=== PATIENT | male | born 1960 | race Caucasian/White ===

== ENCOUNTER → 2016-04-14 | Day surgery (SDC) | payer OTHER ==
[~2016-04-14] MED LIST: Acetaminophen TAB* 325 MG PO PRN; Buffered Lidocaine 1% SYR 3ML* 3 ML/SYR SYRINGE INTRADERM ONE; Buffered Lidocaine 1% SYR 3ML* 3 ML/SYR SYRINGE ONE; Cyclopentolate 1% OPTH.SOL* 2 ML BTL ONE; Flurbiprofen 0.03% OPTH.SOL* 2.5 ML BTL ONE; Lidocaine 1% MPF* 2 ML VIAL ONE; Lidocaine 2% EPI 1:200000 MPF* 20 ML VIAL ONE; Midazolam* 1 MG/ML 5 ML VIAL (5 MG) ONE; Neomycin/Polymy/Dex OPTH.SUSP* MAXITROL 0.1% 5 ML ONE; Phenylephrine 2.5% OPTH.SOL* 2 ML BTL ONE; Povidone Iodine 5% OPTH* 30 ML BTL ONE; Proparacaine 0.5% OPHTH.SOL* 15 ML BTL ONE; Trypan Blue 0.06% SOL* 0.5 ML BTL ONE; acetaZOLAMIDE TAB* 250 MG ONE; fentaNYL* 50 MCG/ML 2 ML VIAL (100 MCG VIAL) ONE
[2016-04-14 10:58] VITALS: BP 107/70
--- NOTE | 2016-04-14 14:18 | OP ---
DATE OF OPERATION: 04/14/2016 - [facility] DATE OF : 1960. SURGEON: Sergei Marin M.D. PREOPERATIVE DIAGNOSIS: Cataract left eye. POSTOPERATIVE DIAGNOSIS: Cataract left eye. OPERATIVE PROCEDURE: Phacoemulsification left eye with IOL. DESCRIPTION OF PROCEDURE: The patient was brought to the operating room after being given 1/2% Alcaine with epinephrine drops in the preoperative area. The eye was prepped and draped in the usual sterile fashion. Sterile drape and eyelid speculum were placed. Again, topical 1/2% Alcaine with epinephrine was given. A paracentesis incision was made at the 3 o'clock position with the No.75 blade. Clear cornea incision 2.2 x 2.2-mm was created at the 6 o'clock position starting at the anterior limbus using the 2.2-mm keratome. The anterior chamber was irrigated with 0.4 mL of 1% non-preservative intracameral lidocaine and filled with DisCoVisc. A capsulorrhexis was completed using the cystotome and the Utrata forceps. Hydrodissection was performed with balanced salt solution. The lens nucleus was removed with the Phacoemulsification handpiece without incident. Cortex was removed with the irrigation-aspiration handpiece. The capsular bag was re-inflated using DisCoVisc and an [id number] implant was inserted with the shooter. Prior to capsulorrhexis, VisionBlue was used to dye the anterior capsule after injection of air. The irrigation- aspiration handpiece was used to remove all residual DisCoVisc. The eye was refilled with balanced salt solution and the wound checked and found to be watertight. Topical Maxitrol drops were given. Indication for complex cataract surgery: White cataract requiring capsular stain for capsulorrhexis. [id number]/[facility] #: [id number] SHIRA
== END | disposition home or self-care (01) ==
LOC: OREAST 07:43
PROVIDERS: ATTEND Specialist
DX: H25.812 Combined forms of age-related cataract, left eye (principal); I48.91 Unspecified atrial fibrillation; I50.9 Heart failure, unspecified; I42.8 Other cardiomyopathies; F17.210 Nicotine dependence, cigarettes, uncomplicated
CPT/HCPCS: A9270-GY; J2250; J3010; V2632

== ENCOUNTER → 2016-04-21 | Day surgery (SDC) | payer OTHER ==
[~2016-04-21] MED LIST changes: -fentaNYL* 50 MCG/ML 2 ML VIAL (100 MCG VIAL) ONE
[2016-04-21 09:54] VITALS: BP 113/91
--- NOTE | 2016-04-21 13:24 | OP ---
OPERATIVE NOTE: DATE OF OPERATION: 04/21/16 DATE OF : [birth year] SURGEON: Sergei Marin M.D. PREOPERATIVE DIAGNOSIS: Cataract right eye. POSTOPERATIVE DIAGNOSIS: Cataract right eye. OPERATIVE PROCEDURE: Phacoemulsification right eye with IOL. PROCEDURE: The patient was brought to the operating room after being given 1/2% Alcaine with epinep hrine drops in the preoperative area. The eye was prepped and draped in the usual sterile fashion. Sterile drape and eyelid speculum were placed. Again, topical 1/2% Alcaine with epinephrine was gi ambar. A paracentesis incision was made at the 9 o'clock position with the No.75 blade. Clear cornea incision 2.2 x 2.2-mm was created at the 12 o'clock position starting at the anterior limbus using the 2.2-mm keratome. The anterior chamber was irrigated with 0.4 mL of 1% non-preservative intracam eral lidocaine and filled with DisCoVisc. A capsulorrhexis was completed using the cystotome and shaheen e Utrata forceps. Hydrodissection was performed with balanced salt solution. The lens nucleus was r emoved with the Phacoemulsification handpiece without incident. Cortex was removed with the irrigat ion-aspiration handpiece. The capsular bag was re-inflated using DisCoVisc and an [id number] implant was inserted with the shooter. Prior to capsulorrhexis, VisionBlue was used to stain the anterior capsule. The irrigation- aspiration handpiece was used to remove all residual DisCoVisc. The eye w as refilled with balanced salt solution and the wound checked and found to be watertight. Topical M axitrol drops were given. Indication for complex cataract surgery: White cataract requiring capsular dye. [id number]/[facility] #: [id number]
== END | disposition home or self-care (01) ==
LOC: OREAST 07:19
PROVIDERS: ATTEND Specialist
DX: H25.811 Combined forms of age-related cataract, right eye (principal); F17.210 Nicotine dependence, cigarettes, uncomplicated; I50.22 Chronic systolic (congestive) heart failure; I48.2 Chronic atrial fibrillation; Z79.01 Long term (current) use of anticoagulants
CPT/HCPCS: A9270-GY; J2250; V2632

== ENCOUNTER 2017-01-20 15:56 | Inpatient (IN) | payer SELFPAY ==
[2017-01-20] MEDS ORDERED: NS 0.9% 1000 ML* 1,000 ML IV ONE (16:28)
[2017-01-20] MEDS ORDERED: Diltiazem DRIP* 100 MG/100 ML ADDV.BAG IVPB ONE (16:48)
[2017-01-20] MEDS ORDERED: Diltiazem IV* 5 MG/ML 5 ML VIAL (for loading dose/IV Push) (25 MG) IV SLOW PU ONE (16:48)
--- NOTE | 2017-01-20 17:10 | RAD ---
INDICATION: Syncope COMPARISON: Chest x-ray dated October 27, 2014 TECHNIQUE: Single AP portable view of the chest was obtained. FINDINGS: Image quality is compromised due to the relative inferiority of a portable chest x-ray. The heart and mediastinum exhibit normal size and contour. The lungs are grossly clear. Linear density identified in the prior chest x-ray has resolved. There is no evidence of a large pleural effusion. Visualized bones are normal for the patient's age. IMPRESSION: No radiographic evidence for acute cardiopulmonary abnormality on this portable chest x-ray.
--- NOTE | 2017-01-20 17:34 | RAD ---
Indication: Syncope with head injury. CT of the brain was performed without IV contrast. Ventricular structures are midline. No midline shift is noted. The extra-axial spaces are unremarkable. There is no evidence of intracranial mass or hemorrhage. No other high or low density lesions are identified. Mastoid air cells and paranasal sinuses are unremarkable. IMPRESSION: No intracranial mass or hemorrhage is noted.
[2017-01-20 17:41] LABS: Hematocrit 42 % (42-52); Hemoglobin 14.6 g/dl (14.0-18.0); Mean Corpuscular HGB Conc 35 g/dl (31-36); Mean Corpuscular Hemoglobin 33 pg (27-31); Mean Corpuscular Volume 96 fL (80-94); Mean Platelet Volume 7 um3 (7.4-10.4); Red Blood Count 4.37 10^6/ul (4.0-5.4); Red Cell Distribution Width 15 % (10.5-15); White Blood Count 8.5 10^3/ul (3.5-10.8)
[2017-01-20 17:58] LABS: Albumin 3.7 g/dL (3.2-5.2); BUN/Creatinine Ratio 8.3 (8-20); EGFR African American 122.5 (>60); EGFR Non-African American 95.2 (>60); Magnesium 1.8 mg/dL (1.9-2.7); Potassium 4.9 mmol/L (3.5-5.0); Total Bilirubin 0.5 mg/dL (0.2-1.0); Total Protein 6.7 g/dL (6.4-8.9)
[2017-01-20 17:59] LABS: Troponin I 0.02 ng/mL (<0.04)
--- NOTE | 2017-01-20 18:11 | ED ---
Margaret Santizo Nilda, scribed for Carrie Brothers MD on 01/20/17 at 1725 . Syncope/Near Syncope - HPI Summary HPI Summary: This patient is a 56 year old M presenting to [facility] with a chief complaint of syncope s/p lifting heavy ply wood at work at approximately 1600 today. Patient reports lightheadedness, LOC, and head trauma (bruise) as a result of the fall, but denies palpitations. He rates the pain 2/10 in severity. Symptoms aggravated by nothing and alleviated by spontaneous resolution. Similar episode of syncope last year. PMHx includes A-Fib (uncontrolled). SHx ETOH (8 beers per day). - History Of Current Complaint Chief Complaint: EDSyncope Time Seen by Provider: 01/20/17 16:25 Hx Obtained From: Patient Onset/Duration: Sudden Onset Timing: Minutes Context: Loss Of Consciousness Activity At Onset: Exertion Associated Head Trauma: Yes Aggravating Factor(s): Nothing Alleviating Factor(s): Spontaneous Resolution Associated Signs And Symptoms: Other - reports lightheadedness, LOC, and head trauma (bruise) as a result of the fall. Patient denies palpitations. - Allergies/Home Medications Allergies/Adverse Reactions: Allergies Allergy/AdvReac Type Severity Reaction Status Date / Time No Known Allergies Allergy Verified 04/21/16 07:55 PMH/Surg Hx/FS Hx/Imm Hx Endocrine/Hematology History: Denies: Hx Anticoagulant Therapy, Hx Blood Disorders, Hx Blood Transfusions, Hx Bone Marrow Disease, Hx Diabetes, Hx Systemic Lupus Erythematosus, Hx Sickle Cell Disease, Hx Thyroid Disease, Hx Anemia, Hx Unexplained Bleeding, Other Endocrine/Hematological Disorders Cardiovascular History: Reports: Hx Congestive Heart Failure - 2011, Other Cardiovascular Problems/Disorders - A-FIB Denies: Hx Aneurysm, Hx Angina, Hx Angioplasty, Hx Auto Implanted Cardiovert Defib, Hx Cardiac Arrest, Hx Cardiomegaly, Hx Congenital Heart Disease, Hx Coronary Artery Disease, Hx Deep Vein Thrombosis, Hx Embolism, Hx Hypercholesterolemia, Hx Hypotension, Hx Hypertension, Hx Pacemaker/ICD, Hx Peripheral Vascular Disease, Hx Rheumatic Fever, Hx Syncope, Hx Valvular Heart Disease Respiratory History: Denies: Hx Asthma, Hx Chronic Bronchitis, Hx Chronic Obstructive Pulmonary Disease (COPD), Hx Cystic Fibrosis, Hx Lung Cancer, Hx Pleural Effusion, Hx Pneumonia, Hx Pulmonary Edema, Hx Pulmonary Embolism, Hx Seasonal Allergies, Hx Sleep Apnea, Other Respiratory Problems/Disorders GI History: Denies: Hx Cirrhosis, Hx Crohn's Disease, Hx Diverticulosis, Hx Gall Bladder Disease, Hx Gastroesophageal Reflux Disease, Hx Gastrointestinal Bleed, Hx Hiatal Hernia, Hx Irritable Bowel, Hx Jaundice, Hx Obstructive Bowel, Hx Ileostomy, Hx Pyloric Stenosis, Hx Ulcer, Other GI Disorders History: Denies: Hx Acute Renal Failure, Hx Benign Prostatic Hyperplasia, Hx Chronic Renal Failure, Hx Dialysis, Hx Kidney Infection, Hx Kidney Stones, Other Problems/Disorders Musculoskeletal History: Denies: Hx Arthritis, Hx Back Problems, Hx Bursitis, Hx Congenital Bone Abnormalities, Hx Fibromyalgia, Hx Gout, Hx Orthopedic Injury, Hx Osteoporosis, Hx Scoliosis, Hx Tendonitis, Other Musculoskeletal History Sensory History: Reports: Hx Cataracts - PENDING SURGERY Denies: Hx Contacts or Glasses, Hx Eye Injury, Hx Eye Prosthesis, Hx Glaucoma , Hx Legally Blind, Hx Macular Degeneration, Hx Vision Problem, Other Sensory Impairments Opthamlomology History: Reports: Hx Cataracts - PENDING SURGERY Denies: Hx Contacts or Glasses, Hx Eye Injury, Hx Eye Prosthesis, Hx Glaucoma , Hx Legally Blind, Hx Macular Degeneration, Hx Vision Problem, Other Sensory Impairments Neurological History: Denies: Hx Dementia, Hx Developmental Delay, Hx Headaches, Hx Migraine, Hx Nerve Disease, Hx Seizures, Hx Spinal Cord Injury, Hx Transient Ischemic Attacks (TIA), Other Neuro Impairments/Disorders Psychiatric History: Reports: Hx Anxiety - Surgical History Surgery Procedure, Year, and Place: TONSILLECTOMY A CHILD Hx Anesthesia Reactions: No Infectious Disease History: Denies: Hx Clostridium Difficile, Hx Hepatitis, Hx Human Immunodeficiency Virus (HIV), Hx of Known/Suspected MRSA, Hx Shingles, Hx Tuberculosis, Hx Known/ Suspected VRE, Hx Known/Suspected VRSA, History Other Infectious Disease - Family History Known Family History: Negative: Hypertension, Diabetes - Social History Occupation: Employed Full-time Lives: Alone - homeless (1 month) Alcohol Use: Occasionally Alcohol Amount: 6 beers a day Substance Use Type: Reports: None Substance Use Comment - Amount & Last Used: Last drank on gi 8 beers and 8 shots Hx Tobacco Use: Yes Smoking Status (MU): Former Smoker Type: Cigarettes Length of Time of Smoking/Using Tobacco: 20 yrs Have You Smoked in the Last Year: Yes Review of Systems Negative: Palpitations Neurological: Other - lightheadedness, LOC, fall, head trauma (bruise) Positive: Syncope All Other Systems Reviewed And Are Negative: Yes Physical Exam Triage Information Reviewed: Yes Vital Signs On Initial Exam: Initial Vitals BP 145/80 01/20/17 16:22 Vital Signs Reviewed: Yes Appearance: Positive: Well-Appearing, No Pain Distress Skin: Positive: Warm, Skin Color Reflects Adequate Perfusion, Dry Eyes: Positive: EOMI, IVANA ENT: Positive: Pharynx normal, TMs normal Neck: Positive: Supple, Nontender Respiratory/Lung Sounds: Positive: Clear to Auscultation, Breath Sounds Present. Negative: Rales, Rhonchi, Wheezes Cardiovascular: Positive: Other - irregularly irregular heartbeat; no gallop. Negative: Murmur, Rub Abdomen Description: Positive: Nontender, Soft, Other: - no rebound. Negative: Distended, Guarding Bowel Sounds: Positive: Present Musculoskeletal: Positive: Strength/ROM Intact. Negative: Edema Left, Edema Right Neurological: Positive: Sensory/Motor Intact, Alert, Oriented to Person Place, Time, CN Intact II-III Psychiatric: Positive: Affect/Mood Appropriate - [place] Coma Scale Coma Scale Total: 15 Diagnostics - Vital Signs Vital Signs Temp Pulse Resp BP Pulse Ox 01/20/17 16:24 97.7 F 135 20 145/80 99 01/20/17 16:22 145/80 - Laboratory Lab Results: Lab Results 01/20/17 01/20/17 01/20/17 Range/Units 17:28 17:28 17:28 WBC 8.5 (3.5-10.8) 10^3/ul RBC 4.37 (4.0-5.4) 10^6/ul Hgb 14.6 (14.0-18.0) g/dl Hct 42 (42-52) % MCV 96 H (80-94) fL MCH 33 H (27-31) pg MCHC 35 (31-36) g/dl RDW 15 (10.5-15) % Plt Count 226 (150-450) 10^3/ul MPV 7 L (7.4-10.4) um3 Neut % (Auto) 67.1 (38-83) % Lymph % (Auto) 15.9 L (25-47) % [place] % (Auto) 14.9 H (1-9) % Eos % (Auto) 1.3 (0-6) % Baso % (Auto) 0.8 (0-2) % Absolute Neuts (auto) 5.7 (1.5-7.7) 10^3/ul Absolute Lymphs (auto) 1.3 (1.0-4.8) 10^3/ul Absolute Monos (auto) 1.3 H (0-0.8) 10^3/ul Absolute Eos (auto) 0.1 (0-0.6) 10^3/ul Absolute Basos (auto) 0.1 (0-0.2) 10^3/ul Absolute Nucleated RBC 0.01 10^3/ul Nucleated RBC % 0.1 Sodium 133 (133-145) mmol/L Potassium 4.9 (3.5-5.0) mmol/L Chloride 98 L (101-111) mmol/L Carbon Dioxide 29 (22-32) mmol/L Anion Gap 6 (2-11) mmol/L BUN 7 (6-24) mg/dL Creatinine 0.84 (0.67-1.17) mg/dL Est GFR ( Amer) 122.5 (>60) Est GFR (Non-Af Amer) 95.2 (>60) BUN/Creatinine Ratio 8.3 (8-20) Glucose 114 H (70-100) mg/dL Lactic Acid 1.2 (0.5-2.0) mmol/L Calcium 9.0 (8.6-10.3) mg/dL Magnesium 1.8 L (1.9-2.7) mg/dL Total Bilirubin 0.50 (0.2-1.0) mg/dL AST 66 H (13-39) U/L ALT 41 (7-52) U/L Alkaline Phosphatase 97 (34-104) U/L Troponin I 0.02 (<0.04) ng/mL Total Protein 6.7 (6.4-8.9) g/dL Albumin 3.7 (3.2-5.2) g/dL Globulin 3.0 (2-4) g/dL Albumin/Globulin Ratio 1.2 (1-3) TSH Pending Result Diagrams: 01/20/17 17:28 01/20/17 17:28 Lab Statement: Any lab studies that have been ordered have been reviewed, and results considered in the medical decision making process. - Radiology CXR Radiology Interpretation Completed By: Radiologist - No radiographic evidence for acute cardiopulmonary abnormality on this protable CXR. ED Physician has reviewed this report and agrees. - CT Brain CT Interpretation Completed By: Radiologist - No intracranial mass or hemorrhage is noted. ED physcian has reviewed this report and agrees. - EKG 1636 Cardiac Rate: Tachycardia - 142 bpm EKG Rhythm: Atrial Fibrillation ST Segment: Normal EKG Interpretation: No Q Course/Dx Course Of Treatment: 56 yo male who is homeless works at the [employer] with hx of afib no meds as he lost his insurance. He had a syncopal episode today with rapid afib, ct brain neg, dilt iv started case discussed with Dr. Fields for admission - Diagnoses Provider Diagnoses: Syncope, Atrial fibrillation, Head injury - Physician Notifications Discussed Care of Patient With: Yolis Fields - Hospitalist Time Discussed With Above Provider: 17:10 Instructed by Provider To: Admit As Inpatient Discharge - Discharge Plan Condition: Stable Disposition: ADMITTED TO [facility] Referrals: No Primary Care PhysNOPCP [Primary Care Provider] - The documentation as recorded by the Margaret barclay Nilda accurately reflects the service I personally performed and the decisions made by me, Carrie Brothers MD.
[2017-01-20] MEDS ORDERED: Acetaminophen TAB* 325 MG PO PRN (18:29)
[2017-01-20] MEDS ORDERED: Ondansetron INJ* 2 MG/ML VIAL IV PRN (18:29)
[2017-01-20] MEDS ORDERED: Magnesium Sulfate 2 GM IV* 2 GM/50 ML BAG IVPB ONE (18:33)
[2017-01-20 18:34] LABS: TSH (Thyroid Stimulating Horm) 1.55 mcIU/mL (0.34-5.60)
[2017-01-20] MEDS ORDERED: LORazepam TAB(*) 1 MG PO SCH (19:00)
[2017-01-20] MEDS ORDERED: Thiamine IV* 100 MG, Folic Acid IV* 1 MG, Multiple Vitamin IV ADULT* 10 ML in NS 0.9% 1... IV ONE (19:00)
[2017-01-20] MEDS ORDERED: Metoprolol Tartrate TAB* 25 MG PO SCH (19:00)
[2017-01-20] MEDS ORDERED: Enoxaparin(*) 40 MG/0.4 ML SYR SUBCUT SCH (19:00)
[2017-01-20 19:47] LABS: Folate 15.4 ng/mL (>3.99)
[2017-01-20 20:03] LABS: Urine Bilirubin Negative (Negative); Urine Glucose Negative (Negative); Urine Nitrite Negative (Negative)
[2017-01-20 20:18] LABS: Benzodiazepine Urine Screen None Detected (None Detect)
[2017-01-20] MEDS: Metoprolol Tartrate TAB* 25 MG PO SCH (20:34)
[2017-01-20] MEDS: Enoxaparin(*) 100 MG/ML SYR SUBCUT SCH (20:34)
--- NOTE | 2017-01-21 02:07 | HP ---
CC: Dr. Ruiz* MEDICINE HISTORY AND PHYSICAL: DATE OF ADMISSION: 01/20/17 PROVIDER: Jed Phelps NP ATTENDING PHYSICIAN: Dr. José Pathak* (as dictated by Jed Phelps NP). PRIMARY CARE PROVIDER: Dr. Ruiz. CHIEF COMPLAINT: Syncopal episode. HISTORY OF PRESENT ILLNESS: This is a 56-year-old male patient who was brought into the ER for further evaluation after a syncopal episode at work. The patient states that he was at work at the [employer] and he was lifting heavy plywood by himself. He finished and started to walk away and started to feel lightheaded. He tried to sit down in a nearby chair and the next thing he knew he woke up on the ground. The patient was seen by coworkers and was brought into the ER for further evaluation. He states that he had a previous episode approximately 1 year ago when he was out walking in [place]. He had a syncopal episode, was brought into the ER by ambulance, but then states he was subsequently discharged. The patient denies any recent illness, fever, cold or flu-like symptoms. He denies having chest pain, palpitations, issues with dizziness and weakness, shortness of breath. He denies any decreased activity tolerance, abdominal pain , nausea, vomiting, diarrhea, or dysuria. Denies focal weakness, sensory loss, or difficulty with speech. Here in the ER during his evaluation, the patient was noted to be in atrial fibrillation with RVR. The patient states he was not surprised by this as he had stopped taking his home medications approximately 6 months ago secondary to cost. He states that he has had AFib since 2009. He has not been seen by Cardiology since that time. He has also been off of his blood thinner stating that when he was last here in the hospital he was discharged on one of the newer agents, but his insurance will not cover it. He had refused to be on warfarin stating that he had previously tried this medication, but could not be regulated. He also endorses a history of ankle swelling that started a few weeks ago as well as increased fatigue, but denies any other symptoms such as weight gain, orthopnea, again chest pain, shortness of breath, lightheadedness, or dizziness. PAST MEDICAL HISTORY: Includes: 1. Systolic congestive heart failure. 2. Atrial fibrillation. 3. Coronary artery disease. 4. Nonsustained ventricular tachycardia. 5. Alcoholism. 6. Mixed ischemic and nonischemic cardiomyopathy. PAST SURGICAL HISTORY: Includes tonsillectomy. HOME MEDICATIONS: The patient is currently not taking any medications; however , from previous hospital records it appears the patient was previously on: 1. Aspirin 81 mg daily. 2. Metoprolol tartrate 25 mg t.i.d. 3. Lisinopril 5 mg daily. 4. Lipitor 20 mg daily. 5. Eliquis 5 mg twice daily. 6. Magnesium oxide 400 mg twice daily. 7. Spironolactone 25 mg daily. 8. Thiamine 100 mg daily. ALLERGIES: No known allergies. FAMILY HISTORY: He reports mother with a history of CVA and Crohn's disease and Parkinson's. She in her 80s. His father had a history of colon cancer. SOCIAL HISTORY: The patient endorses a history of tobacco use. He states that he quit 3 years ago. He does admit to daily alcohol use, stating he drinks approximately 4 to 5 beers a day and usually has some shots over the weekend when he is watching football with friends. His last drink was last evening prior to admission. He currently works at the [employer]. He is currently homeless and is staying with his friend. Samanta Irwin is his named emergency contact and surrogate decision maker in the event of emergency. REVIEW OF SYSTEMS: As per HPI. PHYSICAL EXAMINATION GENERAL: This is a well-developed, middle-aged male, who was sitting up in the ED stretcher, in no acute distress. VITAL SIGNS: Temperature 97.7, heart rate 88, respiratory rate 18, blood pressure 109/76, and O2 saturation 96% on room air. HEENT: Pupils are equal, round, and reactive to light. Extraocular movements are intact. Oral mucosa appears moist. The patient has poor dentition. NECK: Supple. No JVD noted. LUNGS: Clear to auscultation. There is no accessory muscle use. CARDIAC: Irregularly irregular heartbeat. No murmurs, rubs, or gallops noted. The patient has trace peripheral edema to the lower extremities. Distal pulses are 1+ and intact. ABDOMEN: Soft, nontender, and nondistended. Bowel sounds are normoactive. MUSCULOSKELETAL: The patient has full range of motion. There is no clubbing or cyanosis. SKIN: Limited assessment, but is warm, dry, and perfused. NEUROLOGIC: Cranial nerves II through XII are grossly intact. The patient moves all extremities. No focal deficits noted. Sensation is intact to light touch in the lower extremities. Psych: He is alert and oriented x3. Affect is appropriate. DIAGNOSTIC STUDIES/LAB DATA: CBC: WBC 8.5, hemoglobin 14.6, hematocrit 42, platelet count 226. CMP: Sodium 133, potassium 4.9, chloride 98, carbon dioxide 29, BUN 7, creatinine 0.84, glucose 114, lactic acid 1.2, calcium 9.0, magnesium 1.8. Total bilirubin 0.5, AST 66, ALT 41, alk phos 97, troponin 0.02 , albumin 3.7, vitamin B12 323, folate 15, TSH 1.55. ASSESSMENT AND PLAN: This is a 56-year-old male, who presents today with atrial fibrillation with rapid ventricular response and a syncopal episode after lifting heavy objects at work. 1. Syncopal episode. It is unclear if this is secondary to the heavy lifting or the patient's atrial fibrillation. I suspect this is a combination of multiple factors. The patient has known cardiomyopathy and has been not adherent with his medication regimen. We will monitor him on telemetry and obtain an echocardiogram. The patient did have a CT of the brain done in the ER , which was negative for any acute pathology. The patient will receive a liter of fluid this evening. We will continue to monitor for any further syncope or dizziness or lightheadedness. 2. Atrial fibrillation with rapid ventricular response. The patient's atrial fibrillation is not new. This is likely secondary to medication nonadherence. The patient has been on diltiazem drip in the ER with good control of his rate. His blood pressure is mildly hypotensive, so it is my plan to discontinue diltiazem drip and start the patient back on metoprolol which he was on as an outpatient. Again, we will attempt to achieve rate control with the metoprolol. The patient has a CHADS2 VASc score of 2. We discussed restarting his Eliquis ; however, given that this is a NOAC and there is risk for hypocoagulability if the patient discontinues it abruptly following discharge. Therefore, I would like to maintain the patient currently on subcu Lovenox b.i.d. for full anticoagulation until we can determine if the patient will be discharged on anticoagulation and what kind of anticoagulation. The patient had previous difficulty with Eliquis and I am not sure if the Xarelto would be a better option for his insurance, so we have requested social work assistance determining what medication the patient could be able to afford and obtain in the outpatient setting. He is adamant that he does not want to go back on Warfarin. 2. Macrocytic anemia. This is likely secondary to the patient's history of alcohol use. We will continue with vitamin supplementation. We will monitor B12 and folate levels. 3. Hypomagnesemia, likely secondary to alcohol use. We will replete with IV magnesium and then restart the patient back on p.o. magnesium. 4. History of systolic heart failure. The patient appears roughly euvolemic, though he does have some mild pedal edema. He is not sure of his baseline weight. We will monitor him on daily weights here and keep track of his I's and O's. Again, we will check an echocardiogram to assess heart function. 5. History of alcohol abuse. The patient will receive 1 banana bag this evening. Initially WAM protocol has been ordered with p.r.n. lorazepam in the event the patient has withdrawal symptoms. Social work has been consulted. 6. History of coronary artery disease. Continue aspirin and resume statin. 7. FEN: The patient has ordered a heart-healthy diet. 8. DVT prophylaxis. He is receiving subcu Lovenox. 9. Code status. The patient is a full code. TIME SPENT: Time spent on this admission was approximately 60 minutes, more than half the time was spent [id number] with the patient obtaining history and physical, performing physical examination, and reviewing the plan of care. Plan of care was also reviewed with my attending, Dr. Pathak, who is in agreement. JED PHELPS, SONU [id number]/[facility] #: [id number] SHIRA
[2017-01-21] MEDS: Metoprolol Tartrate TAB* 25 MG PO SCH ×2 (02:12→13:11)
--- NOTE | 2017-01-21 03:49 | PN ---
Progress Note - Progress Note Date of Service: 01/21/17 Note: Pt was having 2-3.5 second pauses while in afib. Will decrease metoprolol to 25mg BID from QID. Monitor for pauses.
[2017-01-21 06:02] LABS: Hematocrit 38 % (42-52); Hemoglobin 12.6 g/dl (14.0-18.0); Mean Corpuscular HGB Conc 34 g/dl (31-36); Mean Corpuscular Hemoglobin 33 pg (27-31); Mean Corpuscular Volume 97 fL (80-94); Mean Platelet Volume 8 um3 (7.4-10.4); Red Blood Count 3.87 10^6/ul (4.0-5.4); Red Cell Distribution Width 15 % (10.5-15); White Blood Count 8.1 10^3/ul (3.5-10.8)
[2017-01-21 06:16] LABS: BUN/Creatinine Ratio 10.2 (8-20); Calcium 8.5 mg/dL (8.6-10.3); EGFR African American 116.1 (>60); EGFR Non-African American 90.2 (>60); HDL Cholesterol 35.8 mg/dL; Potassium 4.2 mmol/L (3.5-5.0)
[2017-01-21] MEDS: Multivitamins/Minerals TAB PO SCH (08:17)
[2017-01-21] MEDS: Lisinopril TAB* 5 MG PO SCH (08:17)
[2017-01-21] MEDS: Magnesium Oxide TAB* 400 MG PO SCH (08:17)
[2017-01-21] MEDS: Thiamine TAB* 100 MG TAB PO SCH (08:18)
[2017-01-21] MEDS: Enoxaparin(*) 100 MG/ML SYR SUBCUT SCH ×2 (08:18→20:30)
[2017-01-21] MEDS: Aspirin Low Dose CHEW TAB* 81 MG PO SCH (08:18)
[2017-01-21] MEDS: Folic Acid TAB* 1 MG PO SCH (08:18)
[2017-01-21] MEDS ORDERED: Atorvastatin* 40 MG TAB PO SCH (17:00)
--- NOTE | 2017-01-21 18:05 | ECHO ---
Patient: GABRIELE JIMÉNEZ [facility] Rec#: [id number] : 1960 Date: 01/21/2017 Age: 56y Height: 180.3 cm / 71.0 in Weight: 90.7 kg / 199.9 lbs Sex: M BSA: 2.1 Room#: 438 Admit Date#: 01/20/2017 Type: Inpatient Referring: Louise Champagne Reading: José Miguel Billy MD Category Planner: Prachi Roa RN RDCS Transthoracic Echocardiogram Indication: Syncope, cardiomyopathy BP: 107/80 HR: 78 Rhythm: NSR Findings History: CAD, CHF, A. fib, mixed ischemic and non-ischemic cardiomyopathy, ETOH abuse Technical Comments: The study quality is fair. Completed at 1715. Left Ventricle: The left ventricular chamber size is normal. There is global hypokinesis of the left ventricle with minor regional variation. There is moderate to severely decreased left ventricular systolic function. The estimated ejection fraction is 25-30%. The assessment of diastolic function is non-diagnostic. Left Atrium: The left atrium is severely dilated. Right Ventricle: The right ventricle wall thickness is mildly increased. The right ventricular cavity size is normal. The right ventricular global systolic function is mildly reduced. Right Atrium: The right atrium is moderately dilated. Aortic Valve: The aortic valve is trileaflet. The aortic valve leaflets are mildly thickened. There is a trace of aortic regurgitation. There is no evidence of aortic stenosis. Mitral Valve: The mitral valve leaflets are mildly thickened. There is mild mitral regurgitation. There is no evidence of mitral stenosis. Tricuspid Valve: The tricuspid valve leaflets are normal. There is mild tricuspid regurgitation. There is evidence of mild pulmonary hypertension. There is no tricuspid stenosis. Pulmonic Valve: The pulmonic valve appears normal. There is mild pulmonic regurgitation. There is no pulmonic stenosis. Pericardium: There is no significant pericardial effusion. A pericardial fat pad is visualized. Aorta: There is no dilatation of the ascending aorta. There is no dilatation of the aortic arch. There is no dilation of the aortic root. Pulmonary Artery: The main pulmonary artery appears normal. Venous: The inferior vena cava is dilated. There is an approximate 50% respiratory change in the inferior vena cava dimension. Summary: There are changes noted when compared to the previous study done on 10/28/2014, LV EF was then less than 20%. MR was moderate. TR and PHTN were mild then. Conclusions There is global hypokinesis of the left ventricle with minor regional variation. There is moderate to severely decreased left ventricular systolic function. The estimated ejection fraction is 25-30%. The assessment of diastolic function is non-diagnostic. The left atrium is severely dilated. There is a trace of aortic regurgitation. There is mild mitral regurgitation. There is mild tricuspid regurgitation. There is evidence of mild pulmonary hypertension. There is mild pulmonic regurgitation. There are changes noted when compared to the previous study done on 10/28/2014, LV EF was then less than 20%. MR was moderate. TR and PHTN were mild then. Measurements Name Value Normal Range RVDdMajor (2D) 4.4 cm (2.2 - 4.4) RAd ISD 4CH 5.8 cm (3.4 - 4.9) RA (A4C)W 4.6 cm (2.9 - 4.6) IVSd (2D) 1 cm (0.6 - 1) LVPWd (2D) 1 cm (0.6 - 1) LVIDd (2D) 5.4 cm (3.6 - 5.4) LVIDs (2D) 4.7 cm - LV FS (2D) 13 % (25 - 45) Aortic Annulus 2.1 cm (1.4 - 2.6) Ao root diameter (2D) 3.4 cm (2.1 - 3.5) Ascending Ao 2.6 cm (2.1 - 3.4) Aortic arch 2.2 cm (1.8 - 3.4) LA dimension (AP) 2D 4.3 cm (2.3 - 3.8) LAd ISD 4CH 6.1 cm (2.9 - 5.3) LA ISD 4CH W 4.5 cm (2.5 - 4.5) Name Value Normal Range LA ESV SP 4CH (A/L) 103 ml - LA ESV SP 2CH (A/L) 97 ml - LA ESV BP (A/L) 105 ml - LA ESV BP (A/L) index 49.8 ml/m2 - LA ESV SP 4CH (MOD) 94 ml - LA ESV SP 2CH (MOD) 95 ml - Name Value Normal Range MV E-wave Vmax 0.74 m/sec - MV deceleration time 192 msec - LV septal e' Vmax 0.1 m/sec - LV lateral e' Vmax 0.12 m/sec - LV E:e' septal ratio 7.4 ratio - LV E:e' lateral ratio 6.2 ratio - Name Value Normal Range AV Vmax 0.96 m/sec - AV VTI 16.5 cm - AV peak gradient 3.7 mmHg - AV mean gradient 2.1 mmHg - LVOT Vmax 0.75 m/sec - LVOT VTI 12.9 cm - LVOT peak gradient 2.2 mmHg - LVOT mean gradient 1.3 mmHg - LAVERNE Vmax 0.72 m/sec - Name Value Normal Range TR Vmax 2.3 m/sec - TR peak gradient 21 mmHg - RAP 15 mmHg - RVSP 36 mmHg - IVC diameter 2.6 cm - Name Value Normal Range PV Vmax 0.62 m/sec -
--- NOTE | 2017-01-21 19:01 | PN ---
Subjective Date of Service: 01/21/17 Interval History: Patient seen and examined at bedside. Denies fever, chills, lightheadedness or dizziness, shortness of breath, chest discomfort, N/V/D. Pt states that when he had his syncopal episode yesterday that prior to passing out he had "closing in of his vision", "like tunnel vision". Discussed with Pt the options for anticoagulation. Including warfarin, NOACs, ASA. Pt will willing to take warfarin, but can not afford the copays for the blood monitoring. If he could get a home machine to test and phone results to the PCP, he would be willing to do that. Pt is unable to afford NOACs. Also discussed that we would work with the [facility] $4 list for discharge medications so that he is able to afford his medications. Tele: Afib, rate 70-80's, with intermittent pauses 2-3.5 seconds. Family History: Unchanged from Admission Social History: Unchanged from Admission Past Medical History: Unchanged from Admission Objective Active Medications: Acetaminophen (Tylenol Tab*) 650 mg PO Q4H PRN Reason: FEVER/PAIN Aspirin (Aspirin Low Dose Tab*) 81 mg PO DAILY [facility] Atorvastatin Calcium (Lipitor*) 40 mg PO 1700 MELANIE Enoxaparin Sodium (Lovenox(*)) 90 mg SUBCUT BID MELANIE Folic Acid (Folvite Tab*) 1 mg PO DAILY MELAN[facility] Lisinopril (Prinivil Tab*) 5 mg PO DAILY M[facility] Lorazepam (Ativan Tab(*)) 0 - 6 mg PO .PER [facility] PROTOCOL [facility] Magnesium Oxide (Magox 400 Tab*) 400 mg PO DAILY [facility] Metoprolol Tartrate (Lopressor Tab*) 25 mg PO Q12H [facility] Multivitamins/Minerals (Theragran/Minerals Tab*) 1 tab PO DAILY [facility] Ondansetron HCl (Zofran Inj*) 4 mg IV Q6H PRN Reason: NAUSEA/VOMITING Thiamine HCl (Vitamin B-1 Tab*) 100 mg PO DAILY [facility] Vital Signs 01/20/17 01/20/17 01/20/17 19:00 20:05 20:14 Temperature 98.5 F Pulse Rate 78 85 85 Respiratory 13 17 Rate Blood Pressure 106/72 139/88 143/87 (mmHg) O2 Sat by Pulse 99 99 98 Oximetry 10/01/20/17 01/20/17 20:35 20:38 20:44 Temperature Pulse Rate 85 71 86 Respiratory 18 Rate Blood Pressure 117/87 117/87 130/87 (mmHg) O2 Sat by Pulse 99 96 96 Oximetry 01/20/17 01/20/17 01/20/17 21:00 21:14 22:00 Temperature Pulse Rate 86 Respiratory 20 Rate Blood Pressure 114/64 (mmHg) O2 Sat by Pulse 95 Oximetry 01/20/17 01/20/17 01/21/17 22:30 23:30 00:00 Temperature 98.4 F 98.8 F Pulse Rate 60 68 67 Respiratory 16 20 Rate Blood Pressure 95/70 97/67 98/71 (mmHg) O2 Sat by Pulse 99 97 Oximetry 01/21/17 01/21/17 01/21/17 02:02 02:50 04:00 Temperature 98.7 F Pulse Rate 76 86 76 Respiratory 18 Rate Blood Pressure 111/69 106/77 (mmHg) O2 Sat by Pulse 96 Oximetry 01/21/17 01/21/17 01/21/17 04:04 04:09 05:56 Temperature 98.7 F 99.0 F Pulse Rate 71 82 Respiratory 16 20 Rate Blood Pressure 100/68 107/80 (mmHg) O2 Sat by Pulse 97 98 Oximetry 01/21/17 01/21/17 01/21/17 08:00 08:06 10:13 Temperature 97.9 F 98.4 F Pulse Rate 91 87 Respiratory 18 20 16 Rate Blood Pressure 107/83 105/75 (mmHg) O2 Sat by Pulse 96 96 Oximetry 01/21/17 01/21/17 01/21/17 12:21 12:57 16:40 Temperature 99.7 F 98.3 F Pulse Rate 49 74 85 Respiratory 16 16 Rate Blood Pressure 119/75 105/80 (mmHg) O2 Sat by Pulse 99 98 Oximetry Oxygen Devices in Use Now: None Appearance: NAD, laying in bed Respiratory: Symmetrical Chest Expansion and Respiratory Effort, Clear to Auscultation Cardiovascular: NL Sounds; No Murmurs; No JVD, - - Heart rate irregular Abdominal: NL Sounds; No Tenderness; No Distention Extremities: No Edema Neurological: Alert and Oriented x 3, NL Muscle Strength and Tone Lines/Tubes/Other Access: Clean, Dry and Intact Peripheral IV - site benign Nutrition: Taking PO's Result Diagrams: 01/21/17 05:18 01/21/17 05:18 Assess/Plan/Problems-Billing Assessment: Mr. Rick is a 56 yo male with PMH significant for systolic HF, Afib, CAD, alcoholism, NSVT, mixed ischemic/nonischemic cardiomyopathy who presented to the emergency room with complaints of a syncopal episode and was found to be in afib with RVR. - Patient Problems (1) Syncope Code(s): R55 - SYNCOPE AND COLLAPSE SNOMED Code(s): 005047411 Comment: - Suspect secondary to heavy lifting and Afib - Pt continues to be in afib, with pauses up to 3.5 seconds - No further episodes, denies lightheadedness or dizziness - Brain CT - negative - Echo - EF improved, global hypokinesis LV (2) Atrial fibrillation Code(s): I48.91 - UNSPECIFIED ATRIAL FIBRILLATION SNOMED Code(s): 02854595 Comment: - HR is under good control, but is experiencing some pauses. These are decreased since decrease in metoprolol - [id number] score 2 - Continue Metoprolol 25mg BID - Continue Lovenox for anticoagulation until plan can be made for anticoagulation. Would avoid NOACs d/t cost and hx noncompliance (3) Macrocytic anemia Code(s): D53.9 - NUTRITIONAL ANEMIA, UNSPECIFIED SNOMED Code(s): 42405717 Comment: - Suspect secondary to alcohol use - Continue vitamin supplemtation (4) Electrolyte abnormality Code(s): E87.8 - OTH DISORDERS OF ELECTROLYTE AND FLUID BALANCE, NEC SNOMED Code(s): 697830370 Comment: Goal K+ > 4 and MG+ > 2 - Hypomagnesemia - Resolved after replacement (5) Systolic CHF Code(s): I50.20 - UNSPECIFIED SYSTOLIC (CONGESTIVE) HEART FAILURE SNOMED Code( s): 310654077 Comment: - The patient is well compensated. Appears euvolemic. - Echo - EF 25-30% - Continue lisinopril and metoprolol. - Daily weights and I+Os - Encourage abstaining from EtOH as that is not helping his EF. (6) Alcohol abuse Code(s): F10.10 - ALCOHOL ABUSE, UNCOMPLICATED SNOMED Code(s): 19901449 Comment: - No signs of withdrawal at this time - WAM score - 0 - Continue WAM protocol (7) CAD (coronary artery disease) Current Visit: Yes Status: Acute Code(s): I25.10 - ATHSCL HEART DISEASE OF [place] CORONARY ARTERY W/O ANG PCTRS SNOMED Code(s): 20895412 (8) DVT prophylaxis Code(s): GAS4428 - SNOMED Code(s): 791301301 Comment: - Lovenox (9) Full code status Code(s): Z78.9 - OTHER SPECIFIED HEALTH STATUS SNOMED Code(s): 464317422 Status and Disposition: Inpatient. Discharge to home when medically stable, possibly in the AM.
[2017-01-21 19:22] LABS: Magnesium 2.2 mg/dL (1.9-2.7)
[2017-01-22] MEDS: Metoprolol Tartrate TAB* 25 MG PO SCH (02:08)
[2017-01-22 05:41] LABS: Hematocrit 40 % (42-52); Hemoglobin 13.4 g/dl (14.0-18.0); Mean Corpuscular HGB Conc 33 g/dl (31-36); Mean Corpuscular Hemoglobin 32 pg (27-31); Mean Corpuscular Volume 97 fL (80-94); Mean Platelet Volume 8 um3 (7.4-10.4); Red Blood Count 4.15 10^6/ul (4.0-5.4); Red Cell Distribution Width 15 % (10.5-15)
[2017-01-22 05:52] LABS: BUN/Creatinine Ratio 9.4 (8-20); Calcium 8.4 mg/dL (8.6-10.3); EGFR African American 120.8 (>60); EGFR Non-African American 93.9 (>60)
[2017-01-22 08:12] VITALS: BP 119/84
[2017-01-22] MEDS: Enoxaparin(*) 100 MG/ML SYR SUBCUT SCH (08:57)
[2017-01-22] MEDS: Thiamine TAB* 100 MG TAB PO SCH (08:58)
[2017-01-22] MEDS: Lisinopril TAB* 5 MG PO SCH (08:58)
[2017-01-22] MEDS: Multivitamins/Minerals TAB PO SCH (08:59)
[2017-01-22] MEDS: Aspirin Low Dose CHEW TAB* 81 MG PO SCH (08:59)
[2017-01-22] MEDS: Folic Acid TAB* 1 MG PO SCH (08:59)
[2017-01-22] MEDS: Magnesium Oxide TAB* 400 MG PO SCH (08:59)
[2017-01-22] MEDS ORDERED: Metoprolol Tartrate TAB* 25 MG PO SCH (21:00)
--- NOTE | 2017-01-23 04:36 | DS ---
CC: Dr. Ruiz* DISCHARGE SUMMARY: DATE OF ADMISSION: 01/20/17 DATE OF DISCHARGE: 01/22/17 PRIMARY CARE PROVIDER: Dr. Ruiz. DISCHARGING PROVIDER: MISTI Victoria. SUPERVISING PHYSICIAN: Dr. Agustina Tobar* (dictated by MISTI Victoria). PRIMARY DISCHARGE DIAGNOSES: 1. Rapid atrial fibrillation. 2. Syncope likely secondary to rapid atrial fibrillation and cerebral hypoperfusion. 3. Alcoholism, without signs of withdrawal or acute intoxication. SECONDARY DISCHARGE DIAGNOSES: 1. Macrocytic anemia likely secondary to alcohol use. 2. 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 DISCHARGE MEDICATIONS: 1. Eliquis 5 mg p.o. twice daily. 2. Aspirin 81 mg p.o. daily. 3. Atorvastatin 40 mg p.o. daily. 4. Folic acid 1 mg p.o. daily. 5. Lisinopril 5 mg p.o. daily. 6. Magnesium oxide 400 mg p.o. daily. 7. Metoprolol tartrate 12.5 mg p.o. twice daily. 8. Multivitamin 1 tablet p.o. daily. 9. Thiamine 100 mg p.o. daily. Medication changes: Medications listed above are new. HOSPITAL IMAGIN. Chest x-ray shows no acute process. 2. CT of the brain shows no acute process. 3. Transthoracic echocardiogram shows left ventricular ejection fraction of 25 % to 30%, which has improved over 2 years prior where it was estimated at less than 20%. Evidence of mild pulmonary hypertension. No significant valvular disease. HOSPITAL COURSE: This is a 56-year-old gentleman with a history of alcoholism and likely associated cardiomyopathy as well as atrial fibrillation, who presented to the emergency department after an acute syncopal episode, which occurred while at work. The patient reported a prodrome of feeling lightheaded , he attempted to sit down, but subsequently fell to the floor. The patient reports that he stopped taking all medications approximately 6 months ago as he was having difficulty affording at least one of his medications. He denied any associated chest pain or palpitations that preceded his syncope. In the emergency department, initial EKG showed atrial fibrillation with a rate of 142 beats per minute. Imaging of his head and chest were unremarkable. Initial labs including the CBC was unremarkable. Chemistry panel remarkable only for mild hypomagnesemia, but otherwise insignificant. Toxicology screen was negative. Serum alcohol level not performed at the time of presentation. The patient was maintained on continuous telemetry monitoring. He was started on a beta-david, which quickly controlled his rate and he received magnesium supplementation. His last echocardiogram from approximately 2 years prior had demonstrated a severe cardiomyopathy with an EF of less than 20%. His echocardiogram was repeated during this hospital stay, which showed some improvement in his ejection fraction up to 25% to 30%. The patient was monitored for signs of acute alcohol withdrawal, but he appeared to be asymptomatic. He did have occasional pauses of 2 to 3 seconds noted on telemetry and his beta-david was subsequently decreased prior to discharge. The patient was asymptomatic without complaints of lightheadedness, chest pain or shortness of breath. The patient met with Social Work during his hospital stay to offer assistance for insurance navigation and medication affordability. The patient reported that he had been established with an insurance navigator in the community and did not desire further assistance. DISPOSITION AND FOLLOWUP PLAN: The patient is being discharged to home. He requires close followup with his primary care provider and to establish care with Cardiology. The patient was strongly advised to abstain from alcohol. He declines any need for alcohol abuse assistance. All of his medications were sent to his pharmacy of choice. He received a coupon for free 30 days of Eliquis. The patient should continue to work with insurance navigator to ensure that he is able to reliably obtain medication. TIME SPENT: Greater than 30 minutes were spent on this discharge. MISTI VICTORIA [id number]/[facility] #: [id number] SHIRA
== END 2017-01-22 12:00 | disposition home or self-care (01) | DRG 309 ==
LOC: ED 15:56 → MEDTELE 18:29
PROVIDERS: ADMIT Internal Medicine; ATTEND Internal Medicine
DX: I48.91 Unspecified atrial fibrillation (principal); I50.20 Unspecified systolic (congestive) heart failure; I42.6 Alcoholic cardiomyopathy; E83.42 Hypomagnesemia; F10.20 Alcohol dependence, uncomplicated; D53.9 Nutritional anemia, unspecified; I25.10 Atherosclerotic heart disease of native coronary artery without angina pectoris; Z79.01 Long term (current) use of anticoagulants; Z79.82 Long term (current) use of aspirin; Z79.899 Other long term (current) drug therapy; Z82.3 Family history of stroke; Z84.89 Family history of other specified conditions; Z87.891 Personal history of nicotine dependence; Z91.14 Patient's other noncompliance with medication regimen
CPT/HCPCS: 36415; 70450; 71010; 80048; 80053; 80061; 80307; 81003; 82607; 82746; 83605; 83735; 84443; 84484; 85025; 93005; 93306; A9270-GY; J1650; J3411; J3475

== ENCOUNTER 2017-02-11 07:39 | Inpatient (IN) | payer SELFPAY ==
[~2017-02-11 07:39] MED LIST changes: -Acetaminophen TAB* 325 MG PO PRN; -Buffered Lidocaine 1% SYR 3ML* 3 ML/SYR SYRINGE INTRADERM ONE; -Buffered Lidocaine 1% SYR 3ML* 3 ML/SYR SYRINGE ONE; -Cyclopentolate 1% OPTH.SOL* 2 ML BTL ONE; +Etomidate* 2 MG/ML 20 ML VIAL (40 MG) ONE; -Flurbiprofen 0.03% OPTH.SOL* 2.5 ML BTL ONE; -Lidocaine 1% MPF* 2 ML VIAL ONE; -Lidocaine 2% EPI 1:200000 MPF* 20 ML VIAL ONE; -Midazolam* 1 MG/ML 5 ML VIAL (5 MG) ONE; -Neomycin/Polymy/Dex OPTH.SUSP* MAXITROL 0.1% 5 ML ONE; -Phenylephrine 2.5% OPTH.SOL* 2 ML BTL ONE; -Povidone Iodine 5% OPTH* 30 ML BTL ONE; -Proparacaine 0.5% OPHTH.SOL* 15 ML BTL ONE; +Succinylcholine* 20 MG/ML 10 ML VIAL ONE; -Trypan Blue 0.06% SOL* 0.5 ML BTL ONE; -acetaZOLAMIDE TAB* 250 MG ONE
[2017-02-11] MEDS ORDERED: Etomidate* 2 MG/ML 20 ML VIAL (40 MG) ONE (07:41)
[2017-02-11] MEDS ORDERED: Succinylcholine* 20 MG/ML 10 ML VIAL ONE (07:41)
[2017-02-11] MEDS ORDERED: Aspirin SUPP* 300 MG ONE (07:47)
[2017-02-11] MEDS ORDERED: Heparin 2 UNITS/ML IVPREMIX* 2,000 ML IV ONE ×2 (07:53→08:35)
[2017-02-11] MEDS ORDERED: Lidocaine 1% INJ* 10 MG/ML 30 ML SDV ONE (07:53)
[2017-02-11] MEDS ORDERED: Iohexol 350 (CONTRAST) 200 ML MDV IV ONE (07:53)
[2017-02-11] MEDS ORDERED: fentaNYL* 50 MCG/ML 2 ML VIAL (100 MCG VIAL) ONE ×2 (07:56→11:28)
[2017-02-11] MEDS ORDERED: Midazolam* 1 MG/ML 10 ML VIAL (10 MG) ONE ×3 (07:56→11:03)
[2017-02-11] MEDS ORDERED: nitroGLYCERIN DRIP* 25,000 MCG/250 ML BTL ONE (07:56)
[2017-02-11] MEDS ORDERED: Heparin(*) 1000 UNIT/ML 10 ML VIAL CATH LAB IV ONE (07:57)
[2017-02-11] MEDS ORDERED: VERAPAMIL 2.5 MG/ML 4 ML VIAL ONE (07:58)
[2017-02-11] MEDS ORDERED: Aspirin EC Low Dose* 81 MG TAB.EC ONE (07:59)
[2017-02-11] MEDS ORDERED: Aspirin SUPP* 300 MG PR ONE (08:00)
[2017-02-11] MEDS ORDERED: Heparin for STEMI(*) 5,000 UNITS/ML 1 ML VIAL IV ONE ×2 (08:00)
[2017-02-11] MEDS ORDERED: Aspirin TAB* 325 MG G TUBE ONE (08:09)
[2017-02-11] MEDS ORDERED: Azithromycin IV* 500 MG ADVAN VIAL IVPB ONE (08:10)
[2017-02-11] MEDS ORDERED: cefTRIAXone(*) 1 GM in NS 0.9% 50 ML* 50 ML IVPB ONE (08:10)
--- NOTE | 2017-02-11 08:11 | RAD ---
Indication: Myocardial infarction. Single frontal view of the chest performed at 0800 hours was reviewed. Comparison is made with previous exam dated January 20, 2017. Cardiomegaly is noted. Peribronchial thickening and cuffing is noted consistent with vascular congestion. ET tube is at the level of the aortic arch. There may be some left basilar atelectasis or infiltrate noted. IMPRESSION: ET TUBE AND NASOGASTRIC TUBE APPEARS TO BE IN APPROPRIATE LOCATION. INTERSTITIAL EDEMA CONSISTENT WITH VASCULAR CONGESTION. LEFT LOWER LOBE ATELECTASIS OR INFILTRATE.
[2017-02-11 08:19] LABS: Hematocrit 43 % (42-52); Hemoglobin 14.1 g/dl (14.0-18.0); Mean Corpuscular HGB Conc 33 g/dl (31-36); Mean Corpuscular Hemoglobin 33 pg (27-31); Mean Corpuscular Volume 100 fL (80-94); Mean Platelet Volume 8 um3 (7.4-10.4); Red Blood Count 4.27 10^6/ul (4.0-5.4); Red Cell Distribution Width 15 % (10.5-15)
[2017-02-11 08:20] LABS: Add Diff/Slide Review? Slide Review Added; Comments Flag Yes
[2017-02-11 08:34] LABS: ALT 43 U/L (7-52); Albumin 3.4 g/dL (3.2-5.2); Alkaline Phosphatase 109 U/L (34-104); BUN/Creatinine Ratio 5.9 (8-20); Blood Urea Nitrogen 7 mg/dL (6-24); CO2 Carbon Dioxide 20 mmol/L (22-32); Chloride 99 mmol/L (101-111); Creatine Kinase 113 U/L (10-223); EGFR African American 81.9 (>60); EGFR Non-African American 63.7 (>60); Globulin 2.5 g/dL (2-4); Glucose 307 mg/dL (70-100); LDL Cholesterol Direct 135 mg/dL; Sodium 135 mmol/L (133-145); Total Protein 5.9 g/dL (6.4-8.9)
[2017-02-11 08:37] LABS: Troponin I 0.03 ng/mL (<0.04)
[2017-02-11] MEDS ORDERED: Propofol* 10 MG/ML 20 ML BTL IV PUSH ONE (08:42)
[2017-02-11] MEDS ORDERED: Heparin DRIP 25,000 UNITS(*) 25,000 UNITS/500 ML BAG ONE (08:46)
--- NOTE | 2017-02-11 08:47 | ED ---
Haile Santizo Thomas scribed for Chintan Garcia MD on 02/11/17 at 0826 . HPI Cardiac - HPI Summary HPI Summary: The patient is a 56 y/o M BIBA after he was witnessed to slump over off a stool by bystanders. EMS reports that they defibrillated the patients 3 times. Unknown prodromal complaints. Bystanders immediately started CPR. There were about 15 minutes of compressions before the patients arrival to the ED. EMS attempted to intubate the patient twice but were unable to do so. They reported ROSC. LEVEL 5 CAVEAT: HPI LIMITED BY UNRESPONSIVE PATIENT - History of Current Complaint Stated Complaint: CARDIAC ARREST Time Seen by Provider: 02/11/17 07:52 Hx Obtained From: EMS Hx From Patient Unobtainable Due To: Extremis Onset/Duration: Started Minutes Ago - shortly prior to arrival, Still Present Timing: Constant - Additional Pertinent History Primary Care Physician: [id number] - Allergy/Home Medications Allergies/Adverse Reactions: Allergies Allergy/AdvReac Type Severity Reaction Status Date / Time No Known Allergies Allergy Verified 04/21/16 07:55 PMH/Surg Hx/FS Hx/Imm Hx Previously Healthy: No - LEVEL 5 CAVEAT: PMH LIMITED BY UNRESPONSIVE PATIENT Endocrine/Hematology History: Denies: Hx Anticoagulant Therapy, Hx Blood Disorders, Hx Blood Transfusions, Hx Bone Marrow Disease, Hx Diabetes, Hx Systemic Lupus Erythematosus, Hx Sickle Cell Disease, Hx Thyroid Disease, Hx Anemia, Hx Unexplained Bleeding, Other Endocrine/Hematological Disorders Cardiovascular History: Reports: Hx Congestive Heart Failure - 2011, Other Cardiovascular Problems/Disorders - A-FIB Denies: Hx Aneurysm, Hx Angina, Hx Angioplasty, Hx Auto Implanted Cardiovert Defib, Hx Cardiac Arrest, Hx Cardiomegaly, Hx Congenital Heart Disease, Hx Coronary Artery Disease, Hx Deep Vein Thrombosis, Hx Embolism, Hx Hypercholesterolemia, Hx Hypotension, Hx Hypertension, Hx Pacemaker/ICD, Hx Peripheral Vascular Disease, Hx Rheumatic Fever, Hx Syncope, Hx Valvular Heart Disease Respiratory History: Denies: Hx Asthma, Hx Chronic Bronchitis, Hx Chronic Obstructive Pulmonary Disease (COPD), Hx Cystic Fibrosis, Hx Lung Cancer, Hx Pleural Effusion, Hx Pneumonia, Hx Pulmonary Edema, Hx Pulmonary Embolism, Hx Seasonal Allergies, Hx Sleep Apnea, Other Respiratory Problems/Disorders GI History: Denies: Hx Cirrhosis, Hx Crohn's Disease, Hx Diverticulosis, Hx Gall Bladder Disease, Hx Gastroesophageal Reflux Disease, Hx Gastrointestinal Bleed, Hx Hiatal Hernia, Hx Irritable Bowel, Hx Jaundice, Hx Obstructive Bowel, Hx Ileostomy, Hx Pyloric Stenosis, Hx Ulcer, Other GI Disorders History: Denies: Hx Acute Renal Failure, Hx Benign Prostatic Hyperplasia, Hx Chronic Renal Failure, Hx Dialysis, Hx Kidney Infection, Hx Kidney Stones, Other Problems/Disorders Musculoskeletal History: Denies: Hx Arthritis, Hx Back Problems, Hx Bursitis, Hx Congenital Bone Abnormalities, Hx Fibromyalgia, Hx Gout, Hx Orthopedic Injury, Hx Osteoporosis, Hx Scoliosis, Hx Tendonitis, Other Musculoskeletal History Sensory History: Reports: Hx Cataracts - PENDING SURGERY Denies: Hx Contacts or Glasses, Hx Eye Injury, Hx Eye Prosthesis, Hx Glaucoma , Hx Legally Blind, Hx Macular Degeneration, Hx Vision Problem, Hx Hearing Aid, Other Sensory Impairments Opthamlomology History: Reports: Hx Cataracts - PENDING SURGERY Denies: Hx Contacts or Glasses, Hx Eye Injury, Hx Eye Prosthesis, Hx Glaucoma , Hx Legally Blind, Hx Macular Degeneration, Hx Vision Problem, Other Sensory Impairments Neurological History: Denies: Hx Dementia, Hx Developmental Delay, Hx Headaches, Hx Migraine, Hx Nerve Disease, Hx Seizures, Hx Spinal Cord Injury, Hx Transient Ischemic Attacks (TIA), Other Neuro Impairments/Disorders Psychiatric History: Reports: Hx Anxiety - Surgical History Surgery Procedure, Year, and Place: TONSILLECTOMY A CHILD Hx Anesthesia Reactions: No Infectious Disease History: Denies: Hx Clostridium Difficile, Hx Hepatitis, Hx Human Immunodeficiency Virus (HIV), Hx of Known/Suspected MRSA, Hx Shingles, Hx Tuberculosis, Hx Known/ Suspected VRE, Hx Known/Suspected VRSA, History Other Infectious Disease, Traveled Outside the [place] in Last 30 Days - Family History Known Family History: Negative: Hypertension, Diabetes - Social History Alcohol Use: Daily Alcohol Amount: 6 beers a day Substance Use Type: Reports: None Substance Use Comment - Amount & Last Used: Last drank on gi 8 beers and 8 shots Hx Tobacco Use: Yes Smoking Status (MU): Former Smoker Type: Cigarettes Length of Time of Smoking/Using Tobacco: 20 yrs Have You Smoked in the Last Year: Yes Review of Systems - ROS Summary Review of Systems Summary: LEVEL 5 CAVEAT: ROS LIMITED BY UNRESPONSIVE PATIENT Neurological: Other - Unresponsive All Other Systems Reviewed And Are Negative: No Physical Exam - Summary Physical Exam Summary: Constitutional: extremis Skin: Warm, Dry HENT: Normocephalic; Atraumatic ; no hematomas, deformities, no conjunctival hemorrhage Eyes: Conjunctiva normal. The pupils are symmetrically sluggish and reactive bilaterally at 3mm. Neck: (-) JVD, (-) Stridor, (-) Tracheal deviation Cardio: Heart sounds normal; Intact distal pulses; The pedal pulses are 2+ and symmetric. Radial pulses are 2+ and symmetric. (-) Murmur Pulmonary/Chest wall: The patient is spontaneously breathing. (-) Wheezes, (-) Rales Abdomen: soft, distended Musculoskeletal: (-) Edema Lymph: (-) Cervical adenopathy LEVEL 5 CAVEAT: PHYSICAL EXAM LIMITED BY UNRESPONSIVE PATIENT Triage Information Reviewed: Yes Vital Signs On Initial Exam: Temp 97.7 Pulse 120 Resp 16 BP 87/53 Pulse Ox 98 Vital Signs Reviewed: Yes Procedures - Intubation Intubation Method: orotracheal Medications: Succinylcholine Intubation Complications: vomited Post Intubation Xray: No Progress/Xray Impression: ET TUBE AND NASOGASTRIC TUBE APPEARS TO BE IN APPROPRIATE LOCATION Diagnostics - Vital Signs Temp 97.7 Pulse 120 Resp 16 BP 87/53 Pulse Ox 98 - Laboratory Lab Results: Lab Results 02/11/17 Range/Units 07:54 WBC 11.0 H (3.5-10.8) 10^3/ul RBC 4.27 (4.0-5.4) 10^6/ul Hgb 14.1 (14.0-18.0) g/dl Hct 43 (42-52) % MCV 100 H (80-94) fL MCH 33 H (27-31) pg MCHC 33 (31-36) g/dl RDW 15 (10.5-15) % Plt Count 236 (150-450) 10^3/ul MPV 8 (7.4-10.4) um3 Neut % (Auto) 25.1 L (38-83) % Lymph % (Auto) 64.4 H (25-47) % [place] % (Auto) 7.6 (1-9) % Eos % (Auto) 2.4 (0-6) % Baso % (Auto) 0.5 (0-2) % Absolute Neuts (auto) 2.8 (1.5-7.7) 10^3/ul Absolute Lymphs (auto) 7.1 H (1.0-4.8) 10^3/ul Absolute Monos (auto) 0.8 (0-0.8) 10^3/ul Absolute Eos (auto) 0.3 (0-0.6) 10^3/ul Absolute Basos (auto) 0.1 (0-0.2) 10^3/ul Absolute Nucleated RBC 0.01 10^3/ul Nucleated RBC % 0.1 Result Diagrams: 02/11/17 07:54 02/11/17 07:54 Lab Statement: Any lab studies that have been ordered have been reviewed, and results considered in the medical decision making process. - Radiology CXR Xray Interpretation: Positive (See Comments) - ET TUBE AND NASOGASTRIC TUBE APPEARS TO BE IN APPROPRIATE LOCATION. INTERSTITIAL EDEMA CONSISTENT WITH VASCULAR CONGESTION. LEFT LOWER LOBE ATELECTASIS OR INFILTRATE. ED Physician has reviewed this report and agrees. Radiology Interpretation Completed By: Radiologist - EKG 08:02 Cardiac Rate: Tachycardia EKG Rhythm: Atrial Fibrillation EKG Interpretation: A-Fib with RVR at 132 BPM. Some improvement in ST depressions. No STEMI. Disposition - Course Assessment/Plan: The patient is a 56 y/o M BIBA after [place]. Bystanders immediately started CPR. There were about 15 minutes of compressions before the patients arrival to the ED. EMS attempted to intubate the patient twice but were unable to do so. On arrival, the patient has pulses and is breathing on his own. EKG obtained at 08:02 shows A-Fib with RVR at 132 BPM. There was some improvement in ST depressions but there is no STEMI. The patient was intubated in the ED course. Post intubation CXR shows ET TUBE AND NASOGASTRIC TUBE APPEARS TO BE IN APPROPRIATE LOCATION. INTERSTITIAL EDEMA CONSISTENT WITH VASCULAR CONGESTION. LEFT LOWER LOBE ATELECTASIS OR INFILTRATE. I did discuss CT imaging of the brain and C-Spine with Dr. Choi, but he wanted to bring the patient to the [facility] emergently prior to imaging. Dr. Choi is aware of CXR findings. EKG was significant for deep ST depression laterally. The patient should be considered for the imaging after cardiac catheterization. The patient was spontaneously breathing and his pupils were symmetrically sluggish and reactive bilaterally at 3mm. However, there was no purposeful extremity movement. We did initiate therapeutic hypothermia in the emergency department. The patient required no medication for continued sedation. No family is available/present for consultation - Diagnoses Provider Diagnoses: Cardiac arrest, Myocardial ischemia - Critical Care Time Critical Care Time: 30-74 min Discharge - Discharge Plan Condition: Critical Disposition: OTHER Discharge Disposition Comment: Dr. Choi took the patient to the [facility] The documentation as recorded by the Haile barclay Thomas accurately reflects the service I personally performed and the decisions made by me, Chintan Garcia MD.
[2017-02-11 08:49] LABS: PCO2 Arterial 43 mmHg (35-45)
[2017-02-11 08:52] LABS: Eosinophils % 1 % (0-6); Immature Granulocytes 1 % (0-9); Neutrophil % 24 % (38-83); Reactive Lymph % 12 % (0-6)
[2017-02-11 08:53] LABS: Add Path Review? YES; Macrocytosis 1+
[2017-02-11] MEDS ORDERED: Propofol* 100 ML ONE (08:55)
[2017-02-11] MEDS ORDERED: Norepinephrine 16MCG/ML IVPRE* 4,000 MCG/250 ML BAG IV SCH ×2 (09:00→10:10)
[2017-02-11 09:04] LABS: Anion Gap 16 mmol/L (2-11)
[2017-02-11] MEDS ORDERED: Sodium Bicarbonate 8.4%* 50 ML SYRINGE ONE (09:04)
[2017-02-11] MEDS ORDERED: Heparin 2 UNITS/ML IVPREMIX* 1,000 ML IV ONE (09:10)
[2017-02-11] MEDS ORDERED: Metoprolol Tartrate IV* 1 MG/ML 5 ML VIAL ONE (09:13)
[2017-02-11 09:25] LABS: PCO2 Arterial 45 mmHg (35-45)
[2017-02-11] MEDS ORDERED: Midazolam* 1 MG/ML 2 ML VIAL (2 MG) IV SLOW PU PRN (10:16)
[2017-02-11] MEDS ORDERED: fentaNYL* 50 MCG/ML 2 ML VIAL (100 MCG VIAL) IV SLOW PU PRN (10:16)
[2017-02-11] MEDS ORDERED: Acetaminophen ADULT LIQ* 650 MG/20.3 ML UDC PO PRN (10:16)
[2017-02-11] MEDS ORDERED: Albuterol/Ipratropium NEB.SOL* Albuterol 2.5 MG/Ipratropium 0.5 MG 3 ML INH PRN (10:20)
[2017-02-11] MEDS ORDERED: NS 0.9% 1000 ML* 2,000 ML IV ONE (10:21)
[2017-02-11] MEDS ORDERED: LORazepam INJ* 2 MG/ML 1 ML VIAL IV PUSH ONE (10:29)
[2017-02-11] MEDS ORDERED: Chlorhexidine MOUTHWASH 0.12%* 15 ML UDC TOPICAL SCH (11:00)
[2017-02-11] MEDS ORDERED: Propofol* 100 ML IV SCH (11:00)
[2017-02-11] MEDS ORDERED: Heparin DRIP 25,000 UNITS(*) 25,000 UNITS/500 ML BAG IV SCH (11:15)
--- NOTE | 2017-02-11 11:16 | CONSULT ---
Consult Consult: CRITICAL CARE MEDICINE DATE: 02/11/17 TIME: 1000 REFERRING PROVIDER: Steph REASON/CHIEF COMPLAINT: Out of hospital cardiac arrest HISTORY OF PRESENT ILLNESS: 56 M with known cardiomyopathy with witness collapse and arrest while waiting at bus stop. Bystander cpr. 3 defibrillation by EMS. About 15min down time till ER. Intubated. Levophed gtt. ECG with post stemi. Taken to [facility]. LM disease, as well as circ, lad lesions, and chronic right. flow patent. plan for hypothermia protocol and transfer to open heart tooele. REVIEW OF SYSTEMS: unobainable sec to acuity. PAST MEDICAL HISTORY: As per HPI. Reviewed per records. previous cath. was to be on eliquis for afib but nonadhernet. MEDICATIONS: Reviewed but unconfirmed. ALLERGIES: Reviewed per records but unconfirmed. SOCIAL HISTORY: Reviewed per records. FAMILY HISTORY: Noncontributory at present. PHYSICAL EXAM: Vital Signs: Reviewed. Neurologic: pupils equal and reactive. starting to move upper ext against restraint resistance. grimace to pain. HEENT: intubated. mild central cyanosis on intial exam then dissipated. Cardiovascular: distant, irr, irr, no appreciable loud m Respiratory: coarse bl Abdomen: soft, no bs Extremities: cool LABS: Reviewed. IMAGING: Reviewed. MEDICATIONS: Reviewed. ASSESSMENT: 56 M Out of hospital VF arrest - bystander cpr, cath with LM and 3v disease, now undergoing TTM 33C /24hrs. Post cardiac arrest coma syndrome Cardiogenic shock Cardiomyopathy Acute hypoxic resp failure Lactic acidosis Alcohol abuse PLAN: Neurologic: requiring sedation to avoid shivering. on propofol with escalating doses. versed/fent doses. may need fent gtt. would continue to avoid paralytics as able. TTM 33C /24hrs. Cardiovascular: perfusion improving. on levophed continued thru now. doesn't look to need further inotropic agents at this time. has iabp. Recieved 2L fluid and then can hopefully decrease after that. Respiratory: marisabel PCV with MV in teens, now down to about 10lpm. pressures ok. can dec FiO2. maintain sat >94%. Gastrointestinal: ogt. sup. watch for shock liver and slow LA clearance. Renal/Metabolic: watch for further diane. ivf for now. LA clearance f/u. check mag. Infectious Disease: no infective burden. Hematology: on asa, heparin gtt. statin. f/u ptt. Endocrine: no steroids yet. f/u glu Musculoskeletal: bedrest. Psych/Social: social work to find family Supportive and preventative care as ordered. SUP: ppi VTE prophylaxis: on heparin Nation catheter given critical illness, monitoring needs for accurate assessment of DIANE and KDIGO criteria for critically ill patients and to avoid potential harms of urinary retention, skin breakdown/ulcers. Restraints: Reviewed and required. Disposition: ICU, looking for tertiary care Code Status: Full Critical Care Time: 45min, excl procedures D/w Dr. Steph Guillermo DO
[2017-02-11] MEDS ORDERED: fentaNYL* 50 MCG/ML 2 ML VIAL (100 MCG VIAL) IV SLOW PU ONE (11:26)
[2017-02-11 11:36] LABS: Venous Bicarbonate HCO3 14.5 mmol/L (24-28)
[2017-02-11 11:39] LABS: Hematocrit 38 % (42-52); Hemoglobin 12.2 g/dl (14.0-18.0); Mean Corpuscular HGB Conc 33 g/dl (31-36); Mean Corpuscular Hemoglobin 32 pg (27-31); Mean Corpuscular Volume 98 fL (80-94); Mean Platelet Volume 8 um3 (7.4-10.4); Red Blood Count 3.83 10^6/ul (4.0-5.4); Red Cell Distribution Width 15 % (10.5-15); White Blood Count 12.7 10^3/ul (3.5-10.8)
--- NOTE | 2017-02-11 11:43 | PN ---
Progress Note - Progress Note Date of Service: 02/11/17 Note: CRITICAL CARE MEDICINE PROCEDURE NOTE DATE: 02/11/17 TIME: 930 SERVICE: Critical Care Medicine LOCATION OF PROCEDURE: optical laboratory technician PROCEDURE: Central line insertion with zoll cooling catheter PROCEDURALIST: Dr. Guillermo Consent obtain: No, procedure performed emergently Time out held: Yes INDICATION: Out of hospital VF arrest and post cardiac arrest coma syndrome PROCEDURE: Oxygenation maintained and vitals monitored. Patient in supine position. SITE: LEFT Internal Femoral Site preparation with chlorhexidine locally. Full sterile drape, gown, hat, mask, gloves. 5ml 1% Lidocaine utilized at incision site. Standard sterile Seldinger technique utilized via ultrasound guidance and catheter was inserted to 30cm and sutured in place. Good blood return. Minimal blood loss. Site dressed with tegaderm. Patient otherwise tolerated well. Landon Guillermo DO
[2017-02-11 11:58] LABS: ALT 51 U/L (7-52); Albumin 3.3 g/dL (3.2-5.2); Alkaline Phosphatase 86 U/L (34-104); BUN/Creatinine Ratio 7.6 (8-20); Blood Urea Nitrogen 6 mg/dL (6-24); CO2 Carbon Dioxide 20 mmol/L (22-32); Chloride 109 mmol/L (101-111); EGFR African American 131.4 (>60); EGFR Non-African American 102.2 (>60); Globulin 2.4 g/dL (2-4); Glucose 159 mg/dL (70-100); Sodium 135 mmol/L (133-145); Total Protein 5.7 g/dL (6.4-8.9)
[2017-02-11] MEDS ORDERED: Pantoprazole IV* 40 MG IV SCH (12:00)
[2017-02-11] MEDS ORDERED: Heparin VIAL(*) 5000 UNITS/ML VIAL (FIVE THOUSAND) IV SCH (12:00)
[2017-02-11 12:03] LABS: Anion Gap 6 mmol/L (2-11); Calcium 6.3 mg/dL (8.6-10.3); Troponin I 0.43 ng/mL (<0.04)
[2017-02-11] MEDS ORDERED: Cisatracurium* 2 MG/ML MDV 5 ML ONE (12:07)
--- NOTE | 2017-02-11 12:51 | CATH ---
DATE OF PROCEDURE: 02/11/2017. INDICATION FOR PROCEDURE: Patient with out of hospital cardiac arrest with EKG raising a question of posterior wall ST segment elevation myocardial infarction. PROCEDURE: Coronary arteriography, left heart catheterization, left ventriculography, intra-aortic balloon placement. The patient was seen in the emergency room where he was examined. The patient was not purposely responsive and as such consent could not be obtained. The decision was made after speaking the emergency room physician as well as the EMT 's, to proceed to the cardiovascular laboratory to assess for the presence of critical CAD. The patient was brought to the cardiovascular laboratory where formal timeout was performed. He was prepped and draped in a sterile fashion. The right radial artery was assessed and found to be small in caliber for an approach. The right femoral artery area was anesthetized with 1% Lidocaine. The right femoral artery was cannulated and a 6.5 Canadian sheath was placed. Coronary arteriography was performed using a 5 Canadian 4 Reyes left coronary catheter and a 5 [place] 4 Reyes right coronary catheter. Central aortic pressure was recorded using an angled pigtail catheter advanced to the descending aorta. The catheter was then passed across the aortic valve into the left ventricle where left ventricular pressure was recorded. Left ventriculography was performed utilizing a total of 24 cc at a rate of 12 cc/ hour. The catheter was then pulled back across the aortic valve to recheck gradient. Following this, decision was made to place an intra- aortic balloon pump and as such a 40 cc Arrow Rediguard intra-aortic balloon pump was placed. Following this, the intern, Dr. Leland Guillermo placed an internal cooling catheter via the left femoral vein under ultrasound guidance. Following this, the balloon pump was sutured in place and the cooling sheath was sutured in place. The patient was transported to the Intensive Care Unit to await possible transfer to a higher level of care facility to contemplate high risk bypass surgery. Of note, in the labeling specialist the patient came in on Levophed at 6 mcg/minute which was increased to 10 mcg during the course of procedure. He also received 2.5 mg of Lopressor intravenously. ECT was checked and found to be 150. He received additional 2500 units of Heparin and a 1000 an hour drip was started and increased to 1200 units. The total contrast used was 80 cc of Omnipaque dye. The radiation exposure included 7.5 minutes of fluoro time. The air kerma radiation was 694 mGy. The DAP radiation was 4597 microGY/m2. RESULTS: HEMODYNAMIC DATA: Central aortic pressure recorded at 107/78 with a mean of 91. Left ventricular pressure 100/left ventricular end-diastolic pressure of 16 to 21 mmHg. LEFT VENTRICULOGRAPHY: Performed in the MCMAHAN projection revealed global mild to moderate hypokinesis ; however, a longer R to R interval systolic contraction showed enhanced contractility suggesting the presence of possible reserve. Visually estimated LVEF is 30-35%. CORONARY ARTERIOGRAPHY: A. Left coronary artery: 1. Left main: The distal left main when visualized in the MCMAHAN cranial view showed a significant tapered area of approximately 70 to 75 percent. It appeared less significant in other angles suggestive a concentric lesion. 2. Left anterior descending artery: The ostium of the left anterior descending area appeared to have a 75 percent lesion. Of note, calcium was noted to the distal left main and the proximal LAD. The rest of the left anterior descending artery appeared to have mild to moderate lumen irregularity in its mid to distal portion of 35 to 40 percent. 3. Circumflex artery: A nondominant vessel with an ostial 55 to 60 percent stenosis. The first obtuse marginal branch had a long diffusely diseased area with its worst stenosis appearing approximately 90 percent in its mid portion. The continuation of circumflex after the first obtuse marginal branch had an ostial narrowing of 75 to 80 percent. B. Right coronary artery: A dominant vessel which had collateral blood flow seen through the left coronary artery system through a circumflex branch and retrograde filled a somewhat small appearing caliber posterior LV branches and posterior descending artery. The right coronary artery itself had a proximal 85 to 90 percent obstruction seen followed by diffuse disease of 75 to 80 percent in its proximal to mid portion. Just as it turned on to the inferior surface of the heart, it was subtotally occluded with thread-like flow to the distal vessel. Collateral flow was noted somewhat to the posterior descending artery via acute marginal branches. OVERALL ASSESSMENT: Severe triple vessel disease with moderate left ventricular systolic dysfunction with status post out of hospital cardiac arrest. Intra-aortic balloon pump was placed for stabilization with the patient on pressor therapy. An internal cooling catheter was placed by Dr. Guillermo (Product Development Consultant) to start cooling protocol given his out of hospital arrest. Discussions will be made with higher level facilities for a possible transfer to monitor the patient over the next 24 hours and if indeed he does wake up, consider bypass surgery given his coronary anatomy and LV dysfunction. [id number]/[facility] #: [id number] SHIRA
[2017-02-11] MEDS ORDERED: Cisatracurium* 2 MG/ML MDV 5 ML IV ONE ×2 (13:00)
[2017-02-11 13:11] LABS: Direct Bilirubin 0.1 mg/dL (0.03-0.18); Magnesium 1.7 mg/dL (1.9-2.7)
[2017-02-11 13:24] LABS: Phosphorus 2.8 mg/dL (2.5-5.0)
[2017-02-11 15:05] VITALS: BP 84/52
--- NOTE | 2017-02-11 21:33 | HP ---
HISTORY AND PHYSICAL AND TRANSFER NOTE: DATE OF ADMISSION AND TRANSFER: 02/11/17 CHIEF COMPLAINT: The patient with out of hospital cardiac arrest. HISTORY OF PRESENT ILLNESS: The patient is a 56-year-old gentleman with a prior history of coronary artery disease dating back to 2013, when he underwent cardiac catheterization, which revealed a subto tally occluded, diffusely diseased right coronary artery with collaterals from the left system with a 45 to 50% distal left main narrowing noted. The left anterior descending artery at a 40% ostial lucero rowing noted. The mid LAD had mild 30% narrowing noted in its mid to distal portion and part of the proximal portion as well. The circumflex was a nondominant vessel with a high first obtuse marginal branch. The ostium in the circumflex had a 45 to 50% narrowing and the continuation of the circumfle x just after the first high obtuse marginal branch had a 45 to 50% narrowing. Fractional flow reserv e analysis was done to the right coronary artery proximal lesion to see whether or not perfusion to t he acute marginal branches were of significance and they were not found to be of significance. The p atient was noted to have a history of a cardiomyopathy, partly due to coronary artery disease from th e right coronary artery, but partly due to alcoholism. The patient has a history of chronic atrial f ibrillation. He was hospitalized at [facility] from 01/20/17 to 01/22/17 with rapid atrial fibrillation , which was controlled with a beta david, low dose. He also had an echocardiogram for which the ej ection fraction was quoted at 25% to 30%. Of note, during that hospitalization, there was no cardiol ogist involved with the case. He was sent home on the metoprolol and also given a script to get bettie azar on anticoagulation with Eliquis 5 mg twice a day. Today, he was sitting at a bus stop and apparently collapsed and fell to the ground. Bystanders bettie nissa performing CPR on him and the paramedics were there and shocked him 3 times for ventricular fibri llation each time and got him back to atrial fibrillation with a rapid ventricular response. They tr ansported him into the emergency room. He was intubated when I saw him in rapid atrial fibrillation. He was moving extremities minimally, but not in a purposeful movement. Electrocardiogram was perform ed by the paramedics, which revealed significant ST segment depression across the precordium raising the question of anterior wall ischemia versus posterior wall acute ST-elevation infarction. The patient was mildly hypotensive and placed on Levophed at 2 mcg per minute. The decision was made to transport him to the cardiovascular laboratory to define his anatomy and consider intraaortic bal loon pump. The patient had received 4000 units of heparin and 4 baby aspirins that were crushed and placed on hi s NG tube. Of note, he did not receive any Brilinta or prasugrel or clopidogrel in order to first de fine anatomy before proceeding with further antiplatelet therapy. PAST MEDICAL HISTORY: Significant for the atrial fibrillation and coronary artery disease as mention ed. He also has a history of alcoholism in addition to a reported history of nonsustained ventricula r tachycardia and the mixed ischemic and nonischemic cardiomyopathy. PAST SURGICAL HISTORY: Tonsillectomy. MEDICATIONS: That he was supposed to be on from discharge summary sheet of 01/22/17 included: 1. Eliquis 5 mg twice a day. 2. Aspirin 81 mg a day. 3. Atorvastatin 40 a day. 4. Folic acid 1 mg a day. 5. Lisinopril 5 mg a day. 6. Magnesium oxide 400 mg a day. 7. Metoprolol tartrate 12.5 mg twice a day. 8. MultiVit 1 a day. 9. Thiamine 100 mg a day. REVIEW OF SYSTEMS: Unobtainable. PHYSICAL EXAMINATION GENERAL: When I saw him in the emergency room revealed a gentleman who was neurologically not approp riately responding. VITAL SIGNS: Revealed an initial emergency room blood pressure of 84/52, pulse 115 to 125, respirati ons 16, afebrile, O2 saturation 98%. NECK: Supple. I do not see obvious increased JVP. I could not assess well for bruits due to respir ator sounds it was emitting. LUNGS: Clear anteriorly with slightly coarse breath sounds in the lateral to posterior area. HEART: Revealed distant heart sounds heard best. Variable S1, normal S2. Irregular heart rate, fast in nature was noted. No significant murmurs. ABDOMEN: Obese, soft, nontender. EXTREMITIES: Had no jackie pitting edema. The femoral pulses were deep and present without bruit. NEUROLOGIC: The patient was not responding at all appropriately. DIAGNOSTIC STUDIES/LAB DATA: Laboratory results were pending at the time of initially seeing him on the way to the cardiovascular laboratory. HOSPITAL COURSE: The patient was taken to the cardiovascular laboratory where he was documented to h ave severe triple-vessel disease including significant left main distal disease, critical ostial LAD disease, as well as critical disease in the first obtuse marginal branch with a 90% blockage, which w as perhaps the most severe lesion found, somewhat long in nature. The continuation of circumflex pas t the first obtuse marginal branch had a significant 75 to 80% obstruction noted as well. The right c oronary artery was totally occluded as mentioned. LV function revealed an EF of 30% to 35% and it lo oked like with longer R-to-R intervals, he was more like 35%. An intraaortic balloon was placed. Th e patient had a cooling catheter placed by Dr. Guillermo, the documentation consultant, who was in the catheterizati on laboratory to institute cooling protocol once the patient got to the intensive care unit. At the intensive care unit, he continued to be on pressor therapy to control his vital signs with cooling. His pulse rate decreased into the 80s to 90s and his blood pressure required Levophed for further sta bilization. Discussions were made for possible transfer to higher level care facilities with potential for open h eart surgery should he recover mentally from his cardiac arrest. Discussion was made with the [facility], speaking with the mechanical engineering intern on staff and he did not accept the transfer as he felt his c ardiothoracic surgeons would turn down the case given the description of it. I then spoke with Dr. Johnson Love and Dr. Alex Godinez at [facility] about the case, and at that point , I spoke with the documentation consultant, Dr. Ratliff who graciously accepted him in transfer. The patient wa s transferred by helicopter with the intraaortic balloon pump in place with the patient intubated. e patient was not taken with the cooling device as they had no ability to take that with them. The c ooling catheter was left in place to be reinstituted once the patient got to [facility]. Further ongoing management will be through [facility] and their intensive care t ea in addition to Dr. Love being available pending the patient's neurological outcome. [id number]/[id number] #: [id number]
== END 2017-02-11 14:45 | disposition short-term general hospital (02) | DRG 270 ==
LOC: ED 07:39 → CHICATH 08:10 → ICU 09:55
PROVIDERS: ADMIT Internal Medicine Critical Care Medicine; ATTEND Internal Medicine Cardiovascular Disease
PROC: 4A023N7 Measurement of Cardiac Sampling and Pressure, Left Heart, Percutaneous Approach (ICD-10-PCS; 2017-02-11)
PROC: B2111ZZ Fluoroscopy of Multiple Coronary Arteries using Low Osmolar Contrast (ICD-10-PCS; 2017-02-11)
PROC: B2151ZZ Fluoroscopy of Left Heart using Low Osmolar Contrast (ICD-10-PCS; 2017-02-11)
PROC: 0BH17EZ Insertion of Endotracheal Airway into Trachea, Via Natural or Artificial Opening (ICD-10-PCS; 2017-02-11)
PROC: 06HN33Z Insertion of Infusion Device into Left Femoral Vein, Percutaneous Approach (ICD-10-PCS; 2017-02-11)
PROC: 5A02210 Assistance with Cardiac Output using Balloon Pump, Continuous (ICD-10-PCS; principal; 2017-02-11 08:00)
DX: I25.10 Atherosclerotic heart disease of native coronary artery without angina pectoris (principal); J96.01 Acute respiratory failure with hypoxia; R57.0 Cardiogenic shock; I50.9 Heart failure, unspecified; I95.9 Hypotension, unspecified; E87.2 Acidosis; I48.2 Chronic atrial fibrillation; I25.5 Ischemic cardiomyopathy; F10.10 Alcohol abuse, uncomplicated; Y90.9 Presence of alcohol in blood, level not specified; F41.9 Anxiety disorder, unspecified; H26.9 Unspecified cataract; Z87.891 Personal history of nicotine dependence
CPT/HCPCS: 33967; 36415; 71010; 80048; 80053; 80076; 82248; 82550; 82553; 82803; 83605; 83721; 83735; 83880; 84100; 84484; 85025; 85060; 85610; 85730; 93005; 94002; 99156; 99157; A9270-GY; C1725; J0330; J1644; J2001; J2060; J2250; J2704; J3010